=== PATIENT | male | born 1945 | race Caucasian/White ===

== ENCOUNTER 2016-06-21 14:56 | Emergency (ER) | payer BC, MEDICARE ==
[2016-06-21 15:08] VITALS: BP 112/59
--- NOTE | 2016-06-21 15:48 | UC ---
Respiratory Complaint HPI - HPI Summary HPI Summary: sinus congestion for 2 weeks, yellow, seems to be getting worse. Also productive cough. ill with same last week. He is a sometime smoker, "when I get stressed. I'm a vet with PTSD and I will occasionally smoke." No fever. No vomiting or diarrhea. Sore throat yesterday. - History of Current Complaint Chief Complaint: UCGeneralIllness Stated Complaint: CONGESTION Time Seen by Provider: 06/21/16 15:21 Hx Obtained From: Patient Onset/Duration: Gradual Onset, Lasting Weeks - 2 Timing: Constant Severity Initially: Mild Severity Currently: Moderate Character: Sputum Description: - yellow Aggravating Factors: Exertion, Recumbent Position Alleviating Factors: Nothing Associated Signs And Symptoms: Positive: URI, Nasal Congestion, Hoarseness, Sinus Discomfort. Negative: Fever, Chills, Pleuritic Chest Pain, Wheezing, Hemoptysis, Dizziness - Risk Factors Pulmonary Embolism Risk Factors: Negative Cardiac Risk Factors: Negative Pseudomonas Risk Factors: Negative Tuberculosis Risk Factors: Negative - Allergies/Home Medications Allergies/Adverse Reactions: Allergies Allergy/AdvReac Type Severity Reaction Status Date / Time Clonazepam Allergy Blurred Verified 06/21/16 15:09 [facility] Home Medications: Home Medications Albuterol HFA INHALER* [Ventolin HFA Inhaler*] 1 - 2 puff INH Q4H PRN 06/21/16 [ History Confirmed 06/21/16] Cholecalciferol [Vitamin D] 1,000 unit PO 06/21/16 [History] FLUoxetine CAP* [Prozac CAP*] 10 mg PO DAILY 06/21/16 [History Confirmed ] Gabapentin CAP(*) [Neurontin 400 mg CAP(*)] 400 mg PO TID 06/21/16 [History Confirmed 06/21/16] Lamotrigine [Lamictal] 75 mg PO BID 06/21/16 [History Confirmed 06/21/16] Lorazepam [Ativan] 0.5 mg PO QID 06/21/16 [History Confirmed 06/21/16] Menthol (Mouth-Throat) [Cough Drops] 7 mg MT DAILY PRN 06/21/16 [History Confirmed 06/21/16] Naproxen [Naproxen 500 MG TABS] 500 mg PO BID 06/21/16 [History Confirmed ] Niacin 2 tab PO BEDTIME 06/21/16 [History Confirmed 06/21/16] [place]-3 Fatty Acids [Fish Oil] 1,000 mg PO BEDTIME 06/21/16 [History Confirmed 06/21/16] PMH/Surg Hx/FS Hx/Imm Hx Respiratory History Of: Reports: COPD - Surgical History Surgical History: Yes Surgery Procedure, Year, and Place: Right [facility] - Family History Known Family History: Negative: Respiratory Disease, Seizure Disorder - Social History Occupation: Retired Lives: With Family Alcohol Use: None Substance Use Type: None Smoking Status (MU): Former Smoker Type: Cigarettes When Did the Patient Quit Smoking/Using Tobacco: APPROX 14 YRS AGO--USING A SMOKE CESSATION PATCH. Review of Systems Constitutional: Negative Skin: Negative Eyes: Negative ENT: Sore Throat, Nasal Discharge Respiratory: Cough Cardiovascular: Negative Gastrointestinal: Negative Genitourinary: Negative Motor: Negative Neurovascular: Negative Musculoskeletal: Negative Neurological: Negative Psychological: Negative All Other Systems Reviewed And Are Negative: Yes Physical Exam Triage Information Reviewed: Yes Appearance: Well-Appearing, No Pain Distress, Well-Nourished Vital Signs: Initial Vital Signs Temp 98 F 06/21/16 15:02 Pulse 72 06/21/16 15:02 Resp 16 06/21/16 15:02 BP 112/59 06/21/16 15:02 Pulse Ox 99 06/21/16 15:02 Vital Signs Reviewed: Yes Eye Exam: Normal ENT: Positive: Normal ENT inspection, Pharynx normal, Nasal congestion, Nasal drainage, TMs normal, Muffled/hoarse voice - hoarse Neck exam: Normal Neck: Positive: Supple Respiratory Exam: Normal Respiratory: Positive: Lungs clear, Normal breath sounds, No respiratory distress, No accessory muscle use Cardiovascular Exam: Normal Musculoskeletal Exam: Normal Neurological Exam: Normal Psychological Exam: Normal Skin Exam: Normal UC Diagnostic Evaluation - Laboratory O2 Sat by Pulse Oximetry: 99 Respiratory Course/Dx - Differential Dx/Diagnosis Differential Diagnosis/HQI/PQRI: Bronchitis, Lower Resp Infection, Sinusitis Provider Diagnoses: sinusitis Discharge - Discharge Plan Condition: Stable Disposition: HOME Prescriptions: Albuterol HFA INHALER* [Ventolin HFA Inhaler*] 1 - 2 puff INH Q4H PRN #1 mdi PRN Reason: cough, wheezing Cephalexin CAP* [Keflex CAP*] 500 mg PO TID #30 cap Mometasone 220 MCG MDI * [Asmanex 220 MCG MDI *] 1 puff INH DAILY #1 mdi Patient Education Materials: Sinusitis (ED) Referrals: Dom Escobedo MD [Primary Care Provider] -
== END 2016-06-21 15:52 | disposition home or self-care (01) ==
LOC: UCCORT 14:56
DX: J32.9 Chronic sinusitis, unspecified (principal); Z88.8 Allergy status to other drugs, medicaments and biological substances; Z87.891 Personal history of nicotine dependence
CPT/HCPCS: 99212; G0463

== ENCOUNTER 2016-10-17 14:05 | Emergency (ER) | payer BC, MEDICARE, OTHER ==
[2016-10-17 15:01] VITALS: BP 124/77
--- NOTE | 2016-10-17 15:12 | UC ---
Head Injury HPI - History Of Current Complaint Chief Complaint: UCHeadInjury Stated Complaint: HEAD INJURY Time Seen by Provider: 10/17/16 15:04 Hx Obtained From: Patient Onset/Duration: Sudden Onset - struck head on a branch mowing his lawn last night. Saw stars but no LOC., Still Present - sore on the parietal scalp with hematoma. Severity Currently: Mild Severity Initially: Severe Character: Dull - buzzing numbness in the head but the neck "hurts like hell" Aggravating Factor(s): Other - movement and touch Alleviating Factor(s): Other - Jacuzzi jets helped loosen up the neck last night. Associated Signs And Symptoms: Positive: Neck Pain. Negative: LOC (Time In Secs./Mins/Hrs), LOC Duration Unknown, Confusion, Memory Loss - Risk Factors SDH Risk Factor: Recent Trauma - Allergies/Home Medications Allergies/Adverse Reactions: Allergies Allergy/AdvReac Type Severity Reaction Status Date / Time Clonazepam Allergy Blurred Verified 06/21/16 15:09 [facility] PMH/Surg Hx/FS Hx/Imm Hx Respiratory History Of: Reports: COPD Psychological History Of: Reports: Bipolar Disorder - Surgical History Surgical History: Yes Surgery Procedure, Year, and Place: Right [facility]. TONSILLECTOMY - Family History Known Family History: Negative: Respiratory Disease, Seizure Disorder - Social History Occupation: Retired Lives: With Family Alcohol Use: Occasionally Substance Use Type: None Smoking Status (MU): Former Smoker Type: Cigarettes Have You Smoked in the Last Year: No When Did the Patient Quit Smoking/Using Tobacco: APPROX 14 YRS AGO--USING A SMOKE CESSATION PATCH. Review of Systems Musculoskeletal: Arthralgia - in the neck Neurological: Headache All Other Systems Reviewed And Are Negative: Yes Physical Exam Triage Information Reviewed: Yes Appearance: Well-Appearing, No Pain Distress, Well-Nourished Vital Signs: Initial Vital Signs Temp 98.2 F 10/17/16 14:47 Pulse 58 10/17/16 14:47 Resp 20 10/17/16 14:47 BP 124/77 10/17/16 14:47 Pulse Ox 97 10/17/16 14:47 Vital Signs Reviewed: Yes Eyes: Positive: Conjunctiva Clear ENT: Positive: Pharynx normal, TMs normal Neck: Positive: Supple, Tenderness @ - paraspinous muslces and spinous processes. Negative: No Lymphadenopathy, Nuchal Rigidity Respiratory: Positive: Lungs clear Cardiovascular: Positive: RRR, No Murmur Musculoskeletal Exam: Normal Neurological Exam: Normal Psychological Exam: Normal Skin Exam: Normal Head Injury Course/Dx - Differential Dx/Diagnosis Differential Diagnosis/HQI/PQRI: Cervical Sprain, Concussion Without LOC, Contusion Provider Diagnoses: Contusion scalp. Cervical sprain/ strain Discharge - Discharge Plan Condition: Stable Disposition: HOME Patient Education Materials: Scalp Contusion in Adults (ED), Hematoma (ED), Cervical Strain (ED), Cervical Sprain (ED) Additional Instructions: Ice for the first 48 hours then heat.
--- NOTE | 2016-10-17 15:53 | RAD ---
INDICATION: Trauma. Neck pain COMPARISON: None TECHNIQUE: Routine five-view imaging was performed FINDINGS: Bones: There are no acute bony findings. There are arthritic change with multilevel facet arthropathy and anterior vertebral spurring from C4 through C7. Craniocervical junction: The odontoid and atlantodental interval are normal. Alignment: Normal Disc spaces: The disc spaces are well-maintained Soft tissues: The prevertebral soft tissues are normal. IMPRESSION: ADVANCED MULTILEVEL FACET ARTHROPATHY
== END 2016-10-17 16:00 | disposition home or self-care (01) ==
LOC: UCCORT 14:05
DX: S00.03XA Contusion of scalp, initial encounter (principal); S13.4XXA Sprain of ligaments of cervical spine, initial encounter; W22.8XXA Striking against or struck by other objects, initial encounter; Y93.H9 Activity, other involving exterior property and land maintenance, building and construction; Y92.9 Unspecified place or not applicable; J44.9 Chronic obstructive pulmonary disease, unspecified; F31.9 Bipolar disorder, unspecified; Z88.8 Allergy status to other drugs, medicaments and biological substances; Z87.891 Personal history of nicotine dependence
CPT/HCPCS: 72050; 99211; G0463

== ENCOUNTER 2016-11-19 13:08 | Emergency (ER) | payer BC, MEDICARE, OTHER ==
[2016-11-19 15:00] VITALS: BP 120/74
[2016-11-19] MEDS ORDERED: DOXYcycline CAP(*) 100 MG PO ONE (15:18)
--- NOTE | 2016-11-19 15:24 | UC ---
Upper Extremity HPI - HPI Summary HPI Summary: Found attached tick to back or upper arm today, removed it with forceps, brought it in today. Denies pain or itching. - History of Current Complaint Chief Complaint: INDRAkin Stated Complaint: TICK BITE Time Seen by Provider: 11/19/16 15:06 Hx Obtained From: Patient ?: No Onset/Duration: Sudden Onset Severity Initially: Mild Severity Currently: None Aggravating Factor(s): Nothing Alleviating Factor(s): Nothing Associated Signs And Symptoms: Positive: Redness - Risk Factors Non-Orthopedic Risk Factor: Negative - Allergies/Home Medications Allergies/Adverse Reactions: Allergies Allergy/AdvReac Type Severity Reaction Status Date / Time Clonazepam Allergy Blurred Verified 11/19/16 14:51 [facility] Home Medications: Home Medications hydrOXYzine HCL TAB* [Atarax 10 MG TAB*] 10 mg PO TID PRN 11/19/16 [History Confirmed 11/19/16] PMH/Surg Hx/FS Hx/Imm Hx Psychological History: Bipolar Disorder - Surgical History Surgical History: Yes Surgery Procedure, Year, and Place: Right [facility]. TONSILLECTOMY - Family History Known Family History: Negative: Respiratory Disease, Seizure Disorder - Social History Lives: With Family Alcohol Use: None Substance Use Type: None Smoking Status (MU): Former Smoker Type: Cigarettes Have You Smoked in the Last Year: No When Did the Patient Quit Smoking/Using Tobacco: APPROX 14 YRS AGO--USING A SMOKE CESSATION PATCH. Review of Systems Constitutional: Negative Skin: Other - tick R arm Eyes: Negative ENT: Negative Respiratory: Negative Cardiovascular: Negative Gastrointestinal: Negative Genitourinary: Negative Motor: Negative Neurovascular: Negative Musculoskeletal: Negative Neurological: Negative Psychological: Negative All Other Systems Reviewed And Are Negative: Yes Physical Exam Triage Information Reviewed: Yes Appearance: Well-Appearing, No Pain Distress, Well-Nourished Vital Signs: Initial Vital Signs Temp 97.6 F 11/19/16 14:54 Pulse 58 11/19/16 14:54 Resp 17 11/19/16 14:54 BP 120/74 11/19/16 14:54 Pulse Ox 97 11/19/16 14:54 Vital Signs Reviewed: Yes Eye Exam: Normal Eyes: Positive: Conjunctiva Clear ENT Exam: Normal ENT: Positive: Normal ENT inspection, Hearing grossly normal, Pharynx normal, TMs normal Dental Exam: Normal Neck exam: Normal Neck: Positive: Supple, Nontender, No Lymphadenopathy Respiratory Exam: Normal Respiratory: Positive: Chest non-tender, Lungs clear, Normal breath sounds, No respiratory distress, No accessory muscle use Cardiovascular Exam: Normal Cardiovascular: Positive: RRR, No Murmur Musculoskeletal Exam: Normal Musculoskeletal: Positive: Strength Intact, ROM Intact Neurological Exam: Normal Neurological: Positive: Alert Psychological Exam: Normal Skin Exam: Other - tick bite site benign R upper arm, no erythema, drainage, or streaking. Tick appears to be engorged adult, still alive. Upper Extremity Course/Dx - Differential Dx/Diagnosis Provider Diagnoses: tick bite R arm Discharge - Discharge Plan Condition: Stable Disposition: HOME Patient Education Materials: Tick Bite (ED) Referrals: Dom Escobedo MD [Primary Care Provider] - Additional Instructions: If you develop any of the following, please see your physician promptly: (1) Fever, chills, or generalized malaise associated with a headache. (2) A red round area at the site of the bite (or elsewhere) (3) Joint pain, joint swelling or generalized weakness. (4) Redness, swelling, or drainage at the site of the bite. Check yourself, your children and your pets for ticks whenever you've been in an area where ticks live. To remove a tick, grasp it firmly with some tweezers or a string in a slipknot as close to its head as possible and pull it steadily. Ticks do not have a typical "head" attached to their body. There are mouth parts sticking out which they use to feed. If there are mouth parts left behind in the wound there is NO increased risk of Lyme infection; however, the chances of a bacterial skin infection (cellulitis) are higher. If mouth parts remain after tick removal, the best thing to do is apply warm soaks to the area 3-4 times per day to encourage the skin to expel the foreign material. DOXYCYCLINE: Doxycycline (Vibramycin, Doryx) is an antibiotic of the tetracycline family. This type of drug is useful for infections of the respiratory tract and genital tract, and is sometimes used for intestinal infections. Unlike most tetracyclines, doxycycline can be taken with food. It is longer acting, and (usually) less prone to side effects than regular tetracycline. Tetracycline antibiotics can stain immature teeth and SHOULD NOT BE TAKEN BY CHILDREN, NURSING MOTHERS, OR WOMEN. Tetracyclines can make you more prone to sunburn. Abdominal cramping, nausea, and diarrhea are occasional side effects. Women may experience vaginal yeast infections. Call the doctor at once if you develop hives, itching, shortness of breath , or lightheadedness. WHEN A TICK IS NOT ENGORGED AND HAS BEEN ON LESS THAN 24 HOURS - THE RISK FOR LYME IS NEGLIGIBLE. YOU CAN REMOVE THE TICK AND OBSERVE THE AREA ON YOUR OWN. FOLLOW-UP CARE: You should contact your private physician for follow-up care if you develop spreading redness near the site of the bite or on any other areas of the body. If you are unable to get a timely appointment, or if you are worsening, call us or return for re-evaluation.
== END 2016-11-19 15:30 | disposition home or self-care (01) ==
LOC: UCCORT 13:08
DX: S40.861A Insect bite (nonvenomous) of right upper arm, initial encounter (principal); W57.XXXA Bitten or stung by nonvenomous insect and other nonvenomous arthropods, initial encounter; Y93.9 Activity, unspecified; Y92.9 Unspecified place or not applicable; F31.9 Bipolar disorder, unspecified; Z88.8 Allergy status to other drugs, medicaments and biological substances; Z87.891 Personal history of nicotine dependence
CPT/HCPCS: 99212; A9270-GY; G0463

== ENCOUNTER 2016-12-25 11:37 | Emergency (ER) | payer BC, MEDICARE, OTHER ==
[2016-12-25 11:58] VITALS: BP 135/87
--- NOTE | 2016-12-25 12:13 | UC ---
Cardiac HPI - HPI Summary HPI Summary: Patient has had intermittent left sided stabbing chest pain for the past few months. today around 10 oclock it started and has note stopped, he thinks it is stress related. vs stable - History of Current Complaint Chief Complaint: UCChestPain Stated Complaint: LEFT SIDE CHEST PAIN Time Seen by Provider: 12/25/16 11:40 Hx Obtained From: Patient Onset/Duration: Sudden Onset, Lasting Weeks Timing: Intermittent Episodes Lasting: - min to hours Initial Severity: Mild Current Severity: Moderate Chest Pain Location: Left Lateral Character: Sharp/Stabbing Aggravating: Nothing Associated Signs & Symptoms: Positive: Chest Pain, Numbness - left arm, Tingling - Risk Factors Pulmonary Embolism Risk Factors: Negative - Allergy/Home Medications Allergies/Adverse Reactions: Allergies Allergy/AdvReac Type Severity Reaction Status Date / Time Clonazepam Allergy Blurred Verified 11/19/16 14:51 [facility] PMH/Surg Hx/FS Hx/Imm Hx Previously Healthy: Yes - Surgical History Surgical History: Yes Surgery Procedure, Year, and Place: Right [facility]. TONSILLECTOMY - Family History Known Family History: Negative: Respiratory Disease, Seizure Disorder - Social History Alcohol Use: Occasionally Substance Use Type: None Smoking Status (MU): Former Smoker Type: Cigarettes Have You Smoked in the Last Year: No When Did the Patient Quit Smoking/Using Tobacco: APPROX 14 YRS AGO--USING A SMOKE CESSATION PATCH. Review of Systems Constitutional: Fatigue Skin: Negative Eyes: Negative ENT: Negative Respiratory: Negative Cardiovascular: Chest Pain Gastrointestinal: Negative Genitourinary: Negative Motor: Negative Neurovascular: Negative Musculoskeletal: Negative Neurological: Negative Psychological: Negative All Other Systems Reviewed And Are Negative: Yes Physical Exam Triage Information Reviewed: Yes Appearance: Well-Nourished, Ill-Appearing, Pain Distress Vital Signs: Initial Vital Signs Temp 98.6 F 12/25/16 11:46 Pulse 64 12/25/16 11:46 Resp 20 12/25/16 11:46 BP 135/87 12/25/16 11:46 Pulse Ox 98 12/25/16 11:46 Vital Signs Reviewed: Yes Eye Exam: Normal Eyes: Positive: Conjunctiva Clear ENT Exam: Normal ENT: Positive: Hearing grossly normal, Pharynx normal, TMs normal Dental Exam: Normal Neck exam: Normal Respiratory Exam: Normal Respiratory: Positive: Lungs clear, Normal breath sounds, No respiratory distress, No accessory muscle use Cardiovascular Exam: Normal Cardiovascular: Positive: RRR, No Murmur, Pulses Normal Abdominal Exam: Normal Abdomen Description: Positive: Nontender, No Organomegaly, Soft Bowel Sounds: Positive: Present Musculoskeletal Exam: Normal Musculoskeletal: Positive: Strength Intact, ROM Intact, No Edema, Other: - patlapble tenderness in justo pectorals Neurological Exam: Normal Psychological Exam: Normal Skin Exam: Normal - Assessment/Plan Course Of Treatment: hx obtained, exam performed ,meds reviewed, EKG reviewed by dr Juarez. Patient agrees to visit the [facility] ER for further evaluation. - Differential Diagnoses - Chest Pain Differential Diagnosis/HQI/PQRI: Acute [place], ACS, Angina, Chest Wall, Pulmonary Embolism, Other: - anxiety - Differential Diagnoses - Hypertension Differential Diagnosis/HQI PQRI: Angina - Differential Diagnoses - Palpitations Differential Diagnosis/HQI/PQRI: Congestive Heart Failure, Coronary Artery Disease, Panic Disorder - Clinical Impression Provider Diagnoses: left sided chest pain. left arm numbness. anxiety. sinus bradycardia - Physician Notifications Discussed Patient Care With: Toño Key NP Instructed by Provider To: Will See In ED Discharge - Discharge Plan Condition: Stable Disposition: AGAINST MEDICAL ADVICE
== END 2016-12-25 12:07 | disposition left against medical advice (07) ==
LOC: UCCORT 11:37
DX: R07.89 Other chest pain (principal); R20.0 Anesthesia of skin; F41.9 Anxiety disorder, unspecified; R00.1 Bradycardia, unspecified; R53.83 Other fatigue; Z87.891 Personal history of nicotine dependence
CPT/HCPCS: 93005; 99212; G0463

== ENCOUNTER 2017-09-20 13:47 | Emergency (ER) | payer BC, MEDICARE, OTHER ==
[2017-09-20 14:07] VITALS: BP 114/68
--- NOTE | 2017-10-04 07:14 | UC ---
Eye Complaint HPI - HPI Summary HPI Summary: bilateral eye discharge x 1 day no eye pain , no change in vision , no photophobia + bilateral eye redness no cold symptoms - History of Current Complaint Chief Complaint: UCEye Stated Complaint: BILATERAL EYE COMPLAINT Time Seen by Provider: 09/20/17 14:01 Hx Obtained From: Patient Onset/Duration: Gradual Onset, Lasting Days - 1, Still Present Timing: Constant Severity Initially: Moderate Severity Currently: Moderate Pain Intensity: 0 Pain Scale Used: 0-10 Numeric Location of Injury: Conjunctiva Aggravating Factor(s): Blinking Alleviating Factor(s): Nothing Associated Signs And Symptoms: Positive: Drainage (Purulent) - bilateral. Negative: Photophobia, Vision Impairment Bilateral, Vision Impairment Right, Vision Impairment Left, Fever, Swelling - Allergies/Home Medications Allergies/Adverse Reactions: Allergies Allergy/AdvReac Type Severity Reaction Status Date / Time clonazepam Allergy Blurred Verified 09/20/17 14:00 [facility] Home Medications: Home Medications Albuterol 2.5MG/3ML (0.083%)* [Ventolin 2.5 MG/3 ML NEB.DONELL*] 1 inh BID PRN [History Confirmed 09/20/17] Niacin 1 tab DAILY 09/20/17 [History Confirmed 09/20/17] lamoTRIgine TAB(*) [Lamictal TAB(*)] 37 mg BID 09/20/17 [History Confirmed 09/20] PMH/Surg Hx/FS Hx/Imm Hx - Additional Past Medical History Additional PMH: MALARIA MANIC DEPRESSION/PTSD Psychological History: Depression, Bipolar Disorder - Surgical History Surgical History: Yes Surgery Procedure, Year, and Place: Right [facility]. TONSILLECTOMY. Basal cell removal x2 on back. HIP replacement - Family History Known Family History: Negative: Respiratory Disease, Seizure Disorder - Social History Alcohol Use: Rare Substance Use Type: None Smoking Status (MU): Former Smoker Type: Cigarettes Have You Smoked in the Last Year: No When Did the Patient Quit Smoking/Using Tobacco: APPROX 14 YRS AGO--USING A SMOKE CESSATION PATCH. Review of Systems Constitutional: Negative Skin: Negative Eyes: Drainage, Eye Redness ENT: Negative Is Patient Immunocompromised?: No All Other Systems Reviewed And Are Negative: Yes Physical Exam Triage Information Reviewed: Yes Appearance: Well-Appearing, No Pain Distress, Well-Nourished Vital Signs: Initial Vital Signs Temp 97.6 F 09/20/17 14:03 Pulse 57 09/20/17 14:03 Resp 16 09/20/17 14:03 BP 114/68 09/20/17 14:03 Pulse Ox 99 09/20/17 14:03 Vital Signs Reviewed: Yes Eye Exam: Normal Eyes: Positive: Conjunctiva Inflamed - bilateral, Discharge - bilateral ENT Exam: Normal ENT: Positive: Normal ENT inspection, Hearing grossly normal, Pharynx normal Neck: Positive: Supple, Nontender, No Lymphadenopathy Respiratory: Positive: Chest non-tender, Lungs clear, Normal breath sounds Cardiovascular Exam: Normal Cardiovascular: Positive: RRR, No Murmur, Pulses Normal Skin Exam: Normal Eye Complaint Course/Dx - Differential Dx/Diagnosis Provider Diagnoses: Conjunctivitis bilateral Discharge - Sign-Out/Discharge Documenting (check all that apply): Discharge/Admit/Transfer - Discharge Plan Condition: Stable Disposition: HOME Prescriptions: Tobramycin 0.3% OPHTH.DONELL* 1 drop LEFT EYE Q4H #1 btl Patient Education Materials: Conjunctivitis (ED) Referrals: Dom Escobedo MD [Primary Care Provider] - 7 Days - Billing Disposition and Condition Condition: STABLE Disposition: HOME
== END 2017-09-20 14:26 | disposition home or self-care (01) ==
LOC: UCCORT 13:47
DX: H10.33 Unspecified acute conjunctivitis, bilateral (principal); B54 Unspecified malaria; F31.9 Bipolar disorder, unspecified; F43.10 Post-traumatic stress disorder, unspecified; Z96.649 Presence of unspecified artificial hip joint; Z85.828 Personal history of other malignant neoplasm of skin; Z88.8 Allergy status to other drugs, medicaments and biological substances; Z87.891 Personal history of nicotine dependence
CPT/HCPCS: 99212; G0463